=== PATIENT | male | born 1965 | race Caucasian/White ===

== ENCOUNTER 2025-01-23 23:08 | Emergency (ER) | payer MEDICAID ==
[~2025-01-23] VITALS: Ht 182.9 cm; Wt 117.2 kg
[2025-01-23 23:19] VITALS: O2SAT 99
[2025-01-24] MEDS ORDERED: KETOROLAC 15MG/ML VIAL IM ONE
[2025-01-24] MEDS: KETOROLAC 15MG/ML VIAL IM SCH (01:20)
[2025-01-24] MEDS: LIDOCAINE 5% PATCH TOP SCH (01:20)
[2025-01-24] MEDS ORDERED: NAPR-1176 MT (01:33)
[2025-01-24] MEDS ORDERED: LIDO-53 TP (01:33)
[2025-01-24 02:03] VITALS: BP 133/79; PULSE 70; RESP 17; TEMP 36.8; O2SAT 99
== END 2025-01-24 02:49 | disposition home or self-care (01) ==
LOC: ER 23:44
DX: M54.50 Low back pain, unspecified (principal)
CPT/HCPCS: 99283; 96372; J1885

== ENCOUNTER 2025-04-13 22:48 | Emergency (ER) | payer MEDICAID ==
[~2025-04-13] VITALS: Ht 182.9 cm; Wt 94.2 kg
[~2025-04-13 22:48] MED LIST: LIDO-53 TP; NAPR-1176 MT
[2025-04-13 22:49] VITALS: O2SAT 98
[2025-04-13 22:51] VITALS: BP 142/83; PULSE 78; RESP 14; TEMP 36.6; O2SAT 100
[2025-04-13 23:32] LABS: BASOPHILS % 0.9 % (0.0-2.0); EOSINOPHILS % 2.8 % (0.0-5.0); HEMATOCRIT. 40.0 % (42.0-52.0); HEMOGLOBIN. 13.5 g/dL (14.0-18.0); LYMPHOCYTES % 28.0 % (20.0-50.0); MEAN PLATELET VOLUME 9.2 fl (7.4-10.4); MONOCYTES % 9.3 % (2.0-8.0); NEUTROPHILS % 59.0 % (40.0-76.0); PLATELET 205 x1000/uL (130-400); RED BLOOD CELL COUNT 4.91 mill/uL (4.7-6.1); RED CELL DISTRIBUTION WIDTH 14.5 % (11.6-14.6)
[2025-04-13 23:45] LABS: CREATININE 0.8 mg/dL (0.6-1.3); UREA NITROGEN BLOOD 10 mg/dL (9-23)
[2025-04-14] MEDS ORDERED: PIPERACILLIN/TAZO 3.375G/50ML 50 ML IV ONE (01:00)
[2025-04-14] MEDS ORDERED: ACETAMINOPHEN 500MG TABLET PO ONE (01:00)
[2025-04-14] MEDS ORDERED: VANCOMYCIN 1G PREMIX 200 ML IV ONE (01:00)
[2025-04-14] MEDS ORDERED: KETOROLAC 15MG/ML VIAL IV ONE (01:00)
[2025-04-14] MEDS ORDERED: SODIUM CHLORIDE 0.9% (SEPSIS BOLUS) IV ONE (01:00)
[2025-04-14 01:45] LABS: INR 1.0
== END 2025-04-14 01:44 | disposition left against medical advice (07) ==
LOC: ER 22:48 → CMPBEDREQ 04-14 08:00
DX: L08.9 Local infection of the skin and subcutaneous tissue, unspecified (principal); Z79.1 Long term (current) use of non-steroidal anti-inflammatories (NSAID); Z79.899 Other long term (current) drug therapy
CPT/HCPCS: 99291; 93971; 80048; 85025; 85610; 36415; 84145; J7030